=== PATIENT | female | born 1995 | race Two or more races ===

== ENCOUNTER → 2017-04-18 | Outpatient (CLI) | payer BC ==
--- NOTE | ~2017-04-18 | US24 ---
[facility] A Service of [facility] & [facility] RADIOLOGY TEXT RESULTS PATIENT: KHLOE MCKNIGHT LOCATION: [facility] : [birth year] UNIT #: [id number] AGE: [address]: MELL NICOLE APRN SEX: F ORDER DR: [id number] [facility] [address] [place], [place] [address] [id number] O MR#: [id number] Acc #: [id number] NAME: KHLOE MCKNIGHT : 1995 SEX: F STUDY DATE/TIME: 04/18/2017 10:44 UNIT: [facility] ROOM: STUDY DESCRIPTION: US Breast Unilateral Attending Physician: Jyotsna Nicole M.D. Referring Physician: Hiram Alvarez M.D. Ordering Physician: Jyotsna Nicole M.D. Primary Care Physician: Hiram Alvarez M.D. 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 The patient is from [place] and speaks little [place] but has provided this history, to the technologist. Family history of breast cancer in the patient's mother and grandmother. The patient reports that the nodularity in the area of concern in the lower outer left breast is stable to slightly increased in size on her palpation and is now associated with pain symptoms which is new. TECHNIQUE Targeted ultrasound of the area of patient pain symptoms and palpable concern was performed. We have no comparison studies. FINDINGS: Left breast: The patient was scanned initially independently by the technologist and then rescanned in my presence. Communication with the patient was facilitated by a telephone program assistant which was utilized throughout the patient encounter here in the department today. The patient complains of nodularity in the lower outer hemisphere left breast. Ultrasound demonstrates multiple hypoechoic solid appearing nodules in the 4 and 5 o'clock positions of the left breast corresponding to the areas of palpable concern. The largest solid mass is situated at the 4 o'clock position about 6 cm from the nipple and measures 1.7 x 1.6 cm. There is increased through transmission and internal vascularity. The margins are predominantly smooth and well defined imaging features suggest a benign fibroadenoma. The other nodules in the same quadrant of the breast have similar characteristics. In the 5 o'clock position 6 cm [facility] A Service of [facility] RADIOLOGY TEXT RESULTS PATIENT: KHLOE MCKNIGHT LOCATION: [facility] : [birth year] UNIT #: [id number] AGE: [address]: MELL NICOLE GEOTECHNICAL INTERN SEX: F ORDER DR: from the nipple there is a 10 x 9 mm complicated cyst or fibroadenoma. At 5 o'clock 2 cm from the nipple there is a probable fibroadenoma measuring up to 1.1 cm. At 4 o'clock there is a probable small fibroadenoma measuring up to about 9 mm. At 5 o'clock 5 cm from the nipple there is an additional probable small fibroadenoma measuring up to about 6 mm. Based on the strong family history of breast cancer and the provided history of fibroadenomas in this patient, the patient was offered 6-month followup imaging of the probably fibroadenomas versus biopsy of the largest mass. The patient has requested core biopsy which is reasonable given the size of the dominant mass and the strong family history of breast cancer and the fact that the patient has immigrated from [place] and her medical records are likely not retrievable. The breast nursing care partner has been notified of the recommendation for biopsy and the office of Dr. Nicole is in process of being notified of the recommendation for biopsy by the breast nursing care partner. The patient was also counseled that she should expect a scheduling call from her physician in order to scheduled biopsy. The patient has voiced understanding and agreement with the plane and understanding of the instructions. IMPRESSION 1. There are multiple solid nodules in the lower outer hemisphere left breast most likely representing fibroadenomas. The patient has a reported history of fibroadenomas as described above. The patient has requested biopsy of the largest fibroadenoma rather than 6-month followup imaging. This is reasonable based upon the appearance of the largest nodule and the strong family history of breast cancer and the fact that her records probably cannot be retrieved from [place]. The breast nursing care partner has also been notified of the recommendation for biopsy. BIRADS: 4 - suspicious abnormality. Biopsy should be considered. Dictated by... Poncho Davies M.D. THIS IS AN ELECTRONICALLY VERIFIED REPORT Poncho Davies M.D. at 04/18/2017 3:46 PM AB/jose TD: 04/18/2017 11:34 JOB #: [id number] MEDICAL IMAGING REPORT Page 1 of 1 COPY
== END | disposition home or self-care (01) ==
LOC: CWCC 10:27
DX: N63 Unspecified lump in breast (principal); D24.2 Benign neoplasm of left breast; Z80.3 Family history of malignant neoplasm of breast
CPT/HCPCS: 76641

== ENCOUNTER → 2017-05-09 | Day surgery (SDC) | payer BC ==
--- NOTE | ~2017-05-09 | US200 ---
[facility] A Service of [facility] & [facility] RADIOLOGY TEXT RESULTS PATIENT: KHLOE MCKNIGHT LOCATION: [facility] : 93 UNIT #: [id number] AGE: [address]: MELL NICOLE APRN SEX: F ORDER DR: [id number] [facility] [address] [place], [place] [address] [id number] O MR#: [id number] #: [id number] NAME: KHLOE MCKNIGHT : 1995 SEX: F STUDY DATE/TIME: 05/09/2017 14:09 UNIT: [facility] ROOM: STUDY DESCRIPTION: US Breast Guided Bx 1st Lesion Attending Physician: Jyotsna Nicole M.D. Referring Physician: Jyotsna Nicole M.D. Ordering Physician: Jyotsna Nicole M.D. Primary Care Physician: Hiram Alvarez M.D. MEDICAL IMAGING REPORT This report is preliminary unless electronic signature is present EXAM Ultrasound-guided left breast biopsy, 05/09 INDICATION Multiple hypoechoic masses seen on prior ultrasound. Patient presents for biopsy for definitive characterization. PROCEDURE Informed consent was obtained and time-out was performed. This was done through an senior environmental practice leader who was present for the entire exam. Dominant hypoechoic nodule at the 4 o'clock position 6.0 cm from the nipple was localized. Also, a more hypoechoic slightly irregular nodule near the 5 o'clock position 6.0 cm from the nipple was also localized. The skin was marked and then prepped and draped using maximum sterile-barrier technique. 1% lidocaine without epinephrine was used for local anesthesia. First, two 14-gauge core biopsies were obtained through the larger nodule at the 4 o'clock position using an Achieve needle. A marking clip was left within the mass. Then, through a separate small skin incision, two 14-gauge cores were obtained through the lesion at the 5 o'clock position about 6.0 cm from the nipple. A marking clip was left within this lesion as well. The specimens were placed in separate formalin containers and sent to pathology. No immediate complications. Postprocedure mammogram demonstrates extremely dense breasts. One of the clips is noted at the roughly 3 o'clock position of the left breast. The deeper clip, presumably from the lesion at 5 o'clock, cannot be identified as it cannot be pulled into the mammographic field of view. Permanent ultrasound images were recorded. IMPRESSION Successful ultrasound-guided core biopsy of two nodules in the left breast, one at 4 o'clock and one at 5 o'clock. Two 14-gauge cores were obtained from each lesion and a marking clip was left in place within each lesion. No immediate complications. [facility] A Service of [facility] RADIOLOGY TEXT RESULTS PATIENT: KHLOE MCKNIGHT LOCATION: [facility] #: [id number] : [birth year] UNIT #: [id number] AGE: [address]: MELL NICOLE APRN SEX: F ORDER DR: Dictated by... Jose Thorne Jr., M.D. THIS IS AN ELECTRONICALLY VERIFIED REPORT Jose Thorne Jr., M.D. at 05/10/2017 1:54 PM BOB/steve TD: 05/10/2017 08:47 JOB #: [id number] MEDICAL IMAGING REPORT Page 1 of 1 COPY
== END | disposition home or self-care (01) ==
LOC: CWCC 13:06
DX: D24.2 Benign neoplasm of left breast (principal)
CPT/HCPCS: 88305; G0204